=== PATIENT | female | born 1990 | race Caucasian/White ===

== ENCOUNTER 2019-10-18 16:07 | Emergency (ER) | payer BC, SELFPAY ==
[2019-10-18 16:43] LABS: #Eosinphils 0.1 thou/uL (0.0-0.7); #Lymphocytes 2.3 thou/uL (1.20-3.40); #Monocytes 0.6 thou/uL (0.11-0.59); #Neutrophils 9.8 thou/uL (1.40-6.50); %Eosinophils 0.7 % (0.0-10.0); %Lymphocytes 18.2 % (21.0-51.0); %Monocytes 4.4 % (0.0-10.0); %Neutrophils 76.7 % (42.0-75.0); Hemoglobin 12.2 g/dL (12.0-16.0); Mean Corpuscular HGB CONC 35.6 g/dL (32.0-36.0); Mean Corpuscular Hemoglobin 32.8 pg (27.0-31.0); Mean Corpuscular Volume 92.2 fL (78.0-98.0); Mean Platelet Volume 7.4 fL (7.4-10.4); Platelet Count 257 thou/uL (130-400); RBC Distribution Width 11.6 % (11.5-14.5); Red Blood Cell (RBC) Count 3.71 mill/uL (4.20-5.40); White Blood Cell (WBC) Count 12.8 thou/uL (4.8-10.8)
[2019-10-18 17:04] LABS: ALT (SGPT) 19 U/L (8-55); AST (SGOT) 17 U/L (5-34); Albumin 3.8 g/dL (3.5-5.0); Alkaline Phosphatase 73 U/L (40-110); Anion Gap 15 mmol/L (10-20); BUN (Urea Nitrogen) 13 mg/dL (7.0-18.7); Bilirubin, Total 0.5 mg/dL (0.2-1.2); Calc. Creatinine Clearance 0 mL/min (70-130); Calcium 9.1 mg/dL (7.8-10.44); Carbon Dioxide 19 mmol/L (22-29); Chloride 106 mmol/L (98-107); Estimated GFR-MDRD Greater than 90; Globulin 3.3 g/dL (2.4-3.5); Glucose 74 mg/dL (70-105); Potassium 3.7 mmol/L (3.5-5.1); Protein, Total 7.1 g/dL (6.0-8.3); Sodium 136 mmol/L (136-145)
[2019-10-18 17:29] LABS: Bacteria/HPF 2+ HPF (None Seen); Bilirubin Negative (Negative); Blood, Urine 2+ (Negative); Clarity Extra Turbid (Clear); Glucose, Urine (Dipstick) Normal (Negative); Leukocyte 500 Leu/uL (Negative); Nitrite Negative (Negative); Pregnancy Test - Urine (BHCG) POSITIVE (Negative); Pregu Control Background? CLEAR/WHITE (CLR/WHITE); Pregu Control Bar Appear? YES (CONTROL BAR); Protein, Urine (Dipstick) 100 mg/dL (Neg-Trace); RBC/HPF Greater than 50 HPF (0-3); Specific Gravity 1.035 (1.002-1.036); Urobilinogen Normal mg/dL (Less than 2); WBC/HPF Greater than 50 HPF (0-3)
--- NOTE | 2019-10-18 18:16 | ULT ---
Limited Obstetrical Ultrasound INDICATION: Lower abdominal pain with urinary frequency TECHNIQUE: Grayscale, M-mode Doppler, color Doppler and spectral Doppler images were obtained. Manpreet calero is focused on the clinical indication. COMPARISON: No relevant prior studies available. FINDINGS: GESTATION: Number of gestations: Single. Presentation: Breech. heart rate: 163 bpm. Placental location: Anterior and left lateral Previa: No evidence for previa. Cervical length: Not seen JUANA: Not measured cm. LIMITED SURVEY: Not performed BIOMETRY: Biparietal diameter: 3.10cm, 15 weeks and 5 days, 95th percentile. Head circumference: 11.47 cm, 15 weeks and 4 days, 92nd percentile Abdominal circumference: 9.43 cm, 15 weeks and 4 days, 91st percentile Femoral length: 1.63cm, 14 weeks and 6 days, 67th percentile Estimated weight: Not calculated The average gestational age by ultrasound is 15 weeks and 3 dayswith estimated due date of April 07, 2020. The estimated dates by clinical data is 14 weeks and 2 dayswith estimated due date of April 15, 2020 . IMPRESSION: 1. Single live intrauterine gestation with size and dates as above.
== END 2019-10-18 18:44 | disposition home or self-care (01) ==
LOC: ERS 16:07
DX: O23.12 Infections of bladder in pregnancy, second trimester (principal); O99.282 Endocrine, nutritional and metabolic diseases complicating pregnancy, second trimester; E03.9 Hypothyroidism, unspecified; Z3A.15 15 weeks gestation of pregnancy
CPT/HCPCS: 36415; 76815; 80053; 81003; 81015; 81025; 84702; 85025; 87086

== ENCOUNTER 2020-03-28 09:47 | Outpatient (CLI) | payer MEDICAID, OTHER ==
[2020-03-30 12:04] LABS: SARS-CoV-2 MS2 Positive; SARS-CoV-2 N Gene Negative; SARS-CoV-2 S Gene Negative; SARS-CoV-2 by NAA Not Detected (NotDetected); SARS-CoV-2 orf1ab Negative
== END 2020-03-28 09:48 | disposition home or self-care (01) ==
LOC: LABSCS 09:47
PROVIDERS: ATTEND Family Medicine
DX: Z01.812 Encounter for preprocedural laboratory examination (principal); Z11.59 Encounter for screening for other viral diseases
CPT/HCPCS: 87635; U0003

== ENCOUNTER 2020-03-31 11:08 | Inpatient (IN) | payer MEDICAID, OTHER ==
[2020-03-31] MEDS ORDERED: EPHEDRINE 25 MG/5 ML SYRINGE ONE (15:35)
[2020-03-31] MEDS ORDERED: Bupivacaine/Epinephrine 0.25% 30 ML VIAL ONE (15:35)
[2020-03-31 19:50] VITALS: BMI 46.5
[2020-03-31] MEDS ORDERED: hydrALAZINE 20 MG/ML VIAL SLOW IVP PRN ×2 (20:01)
[2020-03-31] MEDS ORDERED: Promethazine HCl 25 MG/ML VIAL IM PRN (20:01)
[2020-03-31] MEDS ORDERED: Lidocaine 1% (PF) 30 ML VIAL SC PRN (20:01)
--- NOTE | 2020-03-31 20:05 | PDOC.FPROB ---
FMR OB H&P: HPI - History of Present Illness Chief Complaint: eIOL Indentification: @ 39 weeks by 15.3 week sono, SIDRA 04/07/2020 History of Present Illness: Patient is a @ 39 weeks by 15.3 week sono, PMHx Marilin's Hypothyroidism , presents for eIOL. Patient has no concerns, + movement, denies contractions, loss of fluid or bleeding. Primary Care Physician: Brant Rodriguez - TAMP FMR OB H&P: Current - Care : 3 Para: 2 Gestational age: 39 weeks Due date: 04/07/2020 Dating Criteria: 15.3 week sono Course/Complications: Marilin's thyroiditis dx during pregnany, patient started on synthroid, TSH downtrending 5.51 > 3.6 > 3.1 > 2.45. Single Umbilical Artery on US, cleared by MFM for eIOL. 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: No abnormal paps, no hx of STI or herpes - Surgical History Sx History: Cholecystectomy 2006 - Social History Social History: no alcohol use, no tobacco, no illicit recreational drugs - Family History Family History: DM FMR OB H&P: Medications - Current Home Medications: Medication Instructions Recorded Confirmed Type Levothyroxine Sodium 125 mcg PO DAILY 03/31/20 03/31/20 History Allergies/Adverse Reactions: Allergies Allergy/AdvReac Type Severity Reaction Status Date / Time No Known Allergies Allergy Verified 03/31/20 19:43 FMR OB H&P: ROS - Review of Systems General: denies: fever/chills, weight/appetite/sleep changes Eyes: denies: eye pain, vision changes ENT: denies: nasal congestion, rhinorrhea Cardiovascular: denies: chest pain, palpitation Respiratory: denies: cough, congestion Gastrointestinal: denies: vomiting, diarrhea Genitourinary (Female): denies: incontinence, dysuria Musculoskeletal: denies: redness, swelling Neurologic: denies: numbness, syncope Integumentary: denies: itching, rash Breast: denies: lumps, bumps Endocrine: denies: polydipsia, polyphagia Hematologic/Lymphatic: denies: prolonged or excessive bleeding, enlarged lymph nodes Psychological: denies: depression, anxiety FMR OB H&P: Vital Signs - Maternal Vital signs: Vital Signs - First Documented Temp Pulse Resp BP 98.2 F 77 18 130/70 03/31/20 19:41 03/31/20 19:41 03/31/20 19:41 03/31/20 19:41 - Heart Tones Baseline: 140 Variability: moderate Acceleration: present Deceleration: absent Category: category 1 [place] contractions every: no contractions FMR OB H&P: Physical Exam - Physical Exam General: NAD, awake, alert and oriented HEENT: normocephalic and atraumatic, PERRLA Neck: supple, FROM General: CTAB, no respiratory distress Abdomen: soft, gravid Musculoskeletal: normal gait and station, FROM in all four extremities Neurological: sensation to pain,touch and proprioception grossly normal, no focal deficit Skin: no rash, good tugor Lymphatic: no unusual bruising or bleeding, no purpura Psychiatric: intact recent and remote memory, good judgement and insight, normal mood and affect - Pelvic Exam SVE: 1, thick, high Membranes: intact Presentation: vertex FMR OB H&P: A/P Discussion: Date/Time: 03/31/202003 Patient is a 29 y/o at 39 weeks, dated by 15.3 week US, who presents for an eIOL. 1. Term , eIOL SIDRA 04/07/20 AB+, antibody neg labs negative a1C 5% GTT 1 hr 120, 2hr 115 7/14 H/H 11.4/32.2 FHR 140s, mod variability, +accels, - decels - 1, thick and high @ 2010 - started 1 cytotech @2100 - will continue to monitor strip - recheck in 4 hours 2. Single Umbilical Artery - Identified on PNC and MFM US - MFM cleared for routine f/u and delivery at 39 weeks - will closely examine placenta s/p delivery, and send for pathology if single umbilical artery confirmed on exam 3. Marilin's Thyroiditis TSH 5.51 > 3.6 > 3.22 > 2.45(03/24) - patient will continue taking synthroid 4. Obesity BMI 46.5 - EFW 2424g/15% This H&P was discussed with Dr. Jay and Dr. Li who agree with the above documentation and plan. Addendum - Attending - Attending Attestation Date/Time: 03/31/20 8537 I personally evaluated the patient and discussed the management with Dr. Valle and Dr. Jay I agree with the History, Examination, Assessment and Plan documented above with any addition or exceptions noted below. 29 yo female at 39.0 wks by 15.3 wk sono here for IOL. SIDRA 04/07/20 Patient denies complications. Reports good movement. R/B/A of induction agents discussed. FHT reactive/cat 1. Decided to start miso. - sIUP: Records reviewed. AB neg. EFW 7.5 lbs. Cephalic by sono. - Autoimmune thyroiditis: Continue current dose of L4. Trend pp to adjust dosing. - BMI > 40: IOL. Miso q 4 hours. Continuous monitoring. Encourage BF. Lifestyle modifications. - SUA: No evidence of growth restriction. Grossly normal level II sono. Stephanie
[2020-03-31 20:39] LABS: Hemoglobin 11.3 g/dL (12.0-16.0); Mean Corpuscular HGB CONC 34.8 g/dL (32.0-36.0); Mean Corpuscular Hemoglobin 32.2 pg (27.0-31.0); Mean Corpuscular Volume 92.6 fL (78.0-98.0); Platelet Count 277 thou/uL (130-400); RBC Distribution Width 12.5 % (11.5-14.5); Red Blood Cell (RBC) Count 3.51 mill/uL (4.20-5.40); White Blood Cell (WBC) Count 12.1 thou/uL (4.8-10.8)
[2020-03-31] MEDS: Lactated Ringer's 1,000 ML IV SCH (20:40)
[2020-03-31] MEDS: Misoprostol 100 MCG TAB VAG SCH (20:41)
[2020-03-31 21:17] LABS: Syphilis Antibody Nonreactive (Nonreactive); Syphilis Antibody Index 0.03 S/CO (<1.00 Non-Reactive)
[2020-03-31 22:58] LABS: HBSAg Index 0.13 S/CO (0-0.99); Hep B Surf Ag Non-Reactive S/CO (NonReactive)
--- NOTE | 2020-04-01 06:23 | PDOC.LDPN ---
Labor & Delivery Progress Note - Subjective Subjective: vaginal pressure - Objective General: NAD Uterine fundus: non tender SVE: /-3 @ 0645 FHT: category 1 (baseline 120, accels present) [place] contractions every: 2-4 min Plan: continue plan of care -: Patient is a 29 y/o at 39 weeks, dated by 15.3 week US, who presents for an eIOL. 1. Term , eIOL SIDRA 04/07/20 AB+, antibody neg labs negative a1C 5% GTT 1 hr 120, 2hr 115 7/14 H/H 11.4/32.2 FHR 120s, mod variability, +accels, - decels - 1, thick and high @ 2009 - /-3 @0645 04/01 - started cytotec @2100 03/31, 0300 04/01 - will continue to monitor strip - recheck in 4 hours 2. Single Umbilical Artery - Identified on PNC and MFM US - MFM cleared for routine f/u and delivery at 39 weeks - will closely examine placenta s/p delivery, and send for pathology if single umbilical artery confirmed on exam 3. Marilin's Thyroiditis TSH 5.51 > 3.6 > 3.22 > 2.45(03/24) - patient will continue taking synthroid 4. Obesity BMI 46.5 - EFW 2424g/15% Dispo: Pt here for eIOL, currently 39.1wks by 15.3 wk sono, last check /-3, [place] score 4, will continue cytotec and check q4h
[2020-04-01] MEDS: Misoprostol 100 MCG TAB VAG SCH ×2 (07:17→08:16)
[2020-04-01] MEDS: Levothyroxine Sodium 125 MCG TAB PO SCH (07:50)
[2020-04-01] MEDS: Lactated Ringer's 1,000 ML IV SCH (08:16)
--- NOTE | 2020-04-01 10:32 | PDOC.LDPN ---
Labor & Delivery Progress Note - Subjective Subjective: painful contractions - Objective Vital signs reviewed and normal: yes General: breathing through contractions Uterine fundus: non tender SVE: /-3 FHT: category 1 (130/mod/+ accel/ no decel) -: SIDRA 04/07/20 1. eIOL - FHR 130s, mod variability, +accels, - decels - /-3 - has been given cytotec x3 - will continue to monitor strip - start pitocin, will recheck in 4 hours 2. Single Umbilical Artery - Identified on PNC and MFM US - MFM cleared for routine f/u and delivery at 39 weeks - will closely examine placenta s/p delivery, and send for pathology if single umbilical artery confirmed on exam 3. Marilin's Thyroiditis TSH 5.51 > 3.6 > 3.22 > 2.45(03/24) - patient will continue taking synthroid 4. Obesity BMI 46.5 - EFW 2424g/15%
[2020-04-01] MEDS ORDERED: NS w/ Oxytocin 10 units 500 ML IV SCH ×2 (10:45)
[2020-04-01] MEDS ORDERED: Fentanyl 4 mcg/Bup 0.1% Cadd 100 ML ONE (11:46)
[2020-04-01] MEDS ORDERED: Lactated Ringer's 500 ML IV PRN (12:04)
[2020-04-01] MEDS ORDERED: Ondansetron PF 4 MG/2 ML Vial IVP PRN (12:04)
[2020-04-01] MEDS ORDERED: Acetaminophen 325 MG TAB PO PRN (12:04)
[2020-04-01] MEDS ORDERED: EPHEDRINE 25 MG/5 ML SYRINGE SLOW IVP PRN (12:04)
[2020-04-01] MEDS ORDERED: diphenhydrAMINE 50 MG/ML VIAL IVP PRN (12:04)
[2020-04-01] MEDS ORDERED: Naloxone HCl 0.4 mg/ml Vial IVP PRN ×2 (12:04)
[2020-04-01] MEDS ORDERED: Promethazine HCl 25 MG/ML VIAL IM PRN (12:04)
[2020-04-01] MEDS ORDERED: Communication Order-Pharmacy FS SCH (12:15)
[2020-04-01] MEDS: Fentanyl 4 mcg/Bupivacaine 0.1% Cassette 100 ML EPIDURAL SCH ×2 (12:18→19:45)
[2020-04-01] MEDS: Ondansetron PF 4 MG/2 ML Vial IVP PRN ×2 (12:39→17:54)
--- NOTE | 2020-04-01 16:22 | PDOC.LDPN ---
Labor & Delivery Progress Note - Subjective Subjective: comfortable - Objective General: NAD Uterine fundus: non tender SVE: /-2 FHT: category 1 [place] contractions every: q2min AROM: clear fluid IUPC placed: yes FSE placed: yes -: 1. eIOL - FHR 130s, mod variability, +accels, - decels - /-2 - AROM 1616, clear fluid, FSE and IUPC placed - will continue pit and continue to monitor strip -epidural placed at 1200 2. Single Umbilical Artery - Identified on PNC and MFM US - MFM cleared for routine f/u and delivery at 39 weeks - will closely examine placenta s/p delivery, and send for pathology if single umbilical artery confirmed on exam 3. Marilin's Thyroiditis TSH 5.51 > 3.6 > 3.22 > 2.45(03/24) - patient will continue taking synthroid 4. Obesity BMI 46.5 - EFW 2424g/15%
[2020-04-01] MEDS ORDERED: Lactated Ringer's 500 ML IV SCH (19:45)
--- NOTE | 2020-04-01 19:45 | PDOC.OBLPN ---
FMR OB Labor PN: Subj - Interval History Hospital Day: 2 Chief Complaint: low BP, trouble tracing baby Indentification: 29 yo female at 39.1 wks by 15.3 wk sono Interval History: Low BP. +nausea. FMR OB Labor PN: Obj - Maternal Vital signs: BP 100s/50s. Baseline 130 to 120/60 to 70s. - Procedures Procedures: FSE placed without complications. FSE placed: yes Resuscitative measures: maternal IV fluids, other (Ephedrin) FMR OB Labor PN: Exam - Physical Exam General: NAD, awake, alert and oriented HEENT: normocephalic and atraumatic, PERRLA, EOMI, MMM Neck: supple, FROM Chest: non-tender to palpation Heart: no edema General: no respiratory distress Abdomen: soft, gravid, non-tender Skin: good tugor - Pelvic Exam SVE: 5/80/-2 Membranes: AROM at 1600 Presentation: Cephalic Estimated Weight: 7 lbs FMR OB Labor PN: Data - Labs Lab results: Laboratory Results - last 24 hr 03/31/20 03/31/20 03/31/20 20:31 20:31 20:31 WBC RBC Hgb Hct MCV MCH MCHC RDW Plt Count MPV Syphilis IgG/IgM Ab Nonreactive Hep Bs Antigen Non-Reactive Blood Type AB POSITIVE Antibody Screen NEGATIVE 03/31/20 03/31/20 20:31 22:16 WBC 12.1 H RBC 3.51 L Hgb 11.3 L Hct 32.5 L MCV 92.6 MCH 32.2 H MCHC 34.8 RDW 12.5 Plt Count 277 MPV 8.0 Syphilis IgG/IgM Ab Hep Bs Antigen Blood Type AB POSITIVE Antibody Screen FMR OB Labor PN: A/P - Problem List (1) Current Visit: Yes Status: Acute Qualifiers: Weeks of gestation: 39 weeks Qualified Code(s): Z3A.39 - 39 weeks gestation of Assessment and Plan: Record reviewed. GBS negative. AB neg. Will stop pit. Give IVF bolus and ephedrin to help with cat 2 tracing. Acels and variability present. FSE placed and therefore able to change maternal positioning now. Continue close monitoring. Now 5 cm. (2) Body mass index (BMI) 45.0-49.9, adult Current Visit: Yes Status: Acute Code(s): Z68.42 - BODY MASS INDEX (BMI) 45.0-49.9, ADULT Assessment and Plan: Lifestyle modifications. Encourage BF. (3) Autoimmune thyroiditis Current Visit: Yes Status: Acute Code(s): E06.3 - AUTOIMMUNE THYROIDITIS Assessment and Plan: Continue current L4 dose. Trend TSH in pp period in 2 to 4 wks. Adjust dosing as appropriate. (4) Single umbilical artery Current Visit: Yes Status: Acute Code(s): Q27.0 - CONGENITAL ABSENCE AND HYPOPLASIA OF UMBILICAL ARTERY Assessment and Plan: No evidence of growth restriction. Continue to monitor heart tracings closely. Placenta to path as indicated. Disposition: Continue resuscitation efforts. Monitor closely. Signature: Stephanie
[2020-04-02] MEDS: Fentanyl 4 mcg/Bupivacaine 0.1% Cassette 100 ML EPIDURAL SCH (04:00)
--- NOTE | 2020-04-02 04:23 | PDOC.BPN ---
<Jai Patel - Last Filed: 04/02/20 04:24> - Brief Progress Note Exam @ 0200 Patient with variable decels on monitor, some late decels, SVE /-2 1. eIOL - FHR 130s, mod variability, +accels, + variable, few late decels - /-2 - AROM 1616, clear fluid, FSE and IUPC in place - epidural placed at 1200 - hold pit, if strip looks good start pit slowly 2. Single Umbilical Artery - Identified on PNC and MFM US - MFM cleared for routine f/u and delivery at 39 weeks - will closely examine placenta s/p delivery, and send for pathology if single umbilical artery confirmed on exam 3. Marilin's Thyroiditis TSH 5.51 > 3.6 > 3.22 > 2.45(03/24) - patient will continue taking synthroid 4. Obesity BMI 46.5 - EFW 2424g/15% <Geraldine Li - Last Filed: 04/03/20 01:03> - Brief Progress Note Attending Note: Cat 1 with intermittent cat 2. Concern for body cord vs nuchal and possible true knot. Start amnio infussion. Continue to closely monitor. Start pit if able. Epidural in place for pain control. Continues to make cervical change. Stephanie
--- NOTE | 2020-04-02 07:14 | PDOC.LDPN ---
Labor & Delivery Progress Note - Subjective Subjective: comfortable (says she is starting to feel some pain with contractions) - Objective Vital signs reviewed and normal: yes General: resting Uterine fundus: non tender SVE: 0 FHT: category 2, variable decelerations [place] contractions every: 5-6min AROM: clear fluid IUPC placed: yes FSE placed: yes Resuscitative measures: amniofusion -: 1. eIOL - FHR 130s, mod variability, +accels, +variable decel @0625 - had some variable and late decels during the night, stopped pit and given amnioinfusion - 0 @0600 - AROM 1616, clear fluid, FSE and IUPC in place - epidural placed at 1200 - mojgan q5-6min 2. Single Umbilical Artery - Identified on PNC and MFM US - MFM cleared for routine f/u and delivery at 39 weeks - will closely examine placenta s/p delivery, and send for pathology if single umbilical artery confirmed on exam 3. Marilin's Thyroiditis TSH 5.51 > 3.6 > 3.22 > 2.45(03/24) - patient will continue taking synthroid 4. Obesity BMI 46.5 - EFW 2424g/15%
[2020-04-02] MEDS: Ondansetron PF 4 MG/2 ML Vial IVP PRN (07:20)
[2020-04-02] MEDS: Lactated Ringer's 1,000 ML IV SCH ×2 (07:23→11:35)
[2020-04-02] MEDS: Levothyroxine Sodium 125 MCG TAB PO SCH (07:59)
[2020-04-02] MEDS: NS / Oxytocin 40 units/1000ml 1,000 ML IV PRN ×2 (08:26→11:00)
--- NOTE | 2020-04-02 08:57 | PDOC.OPDEL ---
Addendum entered and electronically signed by Mellisa Cox MD 04/02/20 10:17 : During 2nd degree perineal laceration repair an arterial bleed was noted. It was pulsatile and repaired with 2 figure of eight sutures using 2-0 Vicryl. Noted to be hemostatic. Original Note: OB Operative/Delivery Note - Additional Findings/Plan Compilations/Other Findings: Delivering Physician Kenny Blanco Attending [place] Procedure: Spontaneous Vaginal Delivery Anesthesia: Epidural QBL: 850ml Pre-op Diagnosis: 1. eIOL of Term intrauterine 2. Single Umbilical Artery 3. Marilin's thyroiditis 4. Obesity Post-op Diagnosis: 1. Term intrauterine , delivered 2. same as above Indications: A 29y/o female presents for eIOL. Delivery Note: This is 29y/o female @ 39.2wks who delivered a viable M infant at 0822. Following an intrapartum course that included cytotec and pitocin admininstration, some variable and late decels and an amnioinfusion, a vigorous M was delivered over an intact perineum in the OA position. Anterior Shoulder and then remainder of the body delivered. No nuchal cord. The head was held down and mouth and nares were bulb suctioned. Cord clamped after delayed cord clamping and cut and cord blood collected. Knot in the cord was noted. Placenta delivered intact in the [place] presentation, and after inspection, single umbilical artery was found. Placenta sent to path. Fundal massage was performed and the fundus was firm. The cervix and vagina were inspected and found to have second degree perineal lac. Lac repaired with 3-0 and 2-0 vicryl in the usual fashion with good approximation and hemostasis. Infant went to nursery in good condition for routine care. Apgars were 8/9 at 1 & 5 minutes, respectively. Patient tolerated delivery well and went to after routine recovery/care. Addendum - Attending - Attending Attestation Date/Time: 04/02/20 1314 I was present, assisted and supervised the of this viable male over an intact perineum. Apgars 8/9. Placenta delivered spontaneously and intact. 3V cord. 2* vaginal laceration repaired with 3-0 vicryl . 2 figure of 8 sutures with 2-0 vicryl placed due to bleeding from vessel with good hemostasis. QBL 877 mL Infant and mother in stable condition. Residents: Francis/Kenny
[2020-04-02] MEDS ORDERED: Fentanyl 4 mcg/Bup 0.1% Cadd 0 ML ONE (09:37)
[2020-04-02] MEDS ORDERED: Benzocaine-Menthol 82.5 ML CAN TOP PRN (10:25)
[2020-04-02] MEDS ORDERED: Bisacodyl 10 MG SUPP PR PRN (10:25)
[2020-04-02] MEDS ORDERED: Ondansetron PF 4 MG/2 ML Vial IVP PRN (10:25)
[2020-04-02] MEDS ORDERED: Lanolin Ointment 7 GM TUBE TOP PRN (10:25)
[2020-04-02] MEDS ORDERED: Preparation H Ointment 28 GM TUBE PR PRN (10:25)
[2020-04-02] MEDS ORDERED: Milk Of Magnesia 30 ML UDCUP PO PRN (10:25)
[2020-04-02] MEDS ORDERED: NS / Oxytocin 40 units/1000ml 1,000 ML IV SCH (10:25)
[2020-04-02] MEDS ORDERED: Adacel (T-DAP) 0.5 ML SYRINGE IM ONE (10:25)
[2020-04-02] MEDS ORDERED: hydrALAZINE 20 MG/ML VIAL SLOW IVP PRN (10:25)
[2020-04-02] MEDS ORDERED: Polyethylene Glycol 3350 17 GM Packet PO SCH (10:45)
[2020-04-02] MEDS ORDERED: Prenatal Vitamin 1 TAB PO SCH (10:45)
[2020-04-02] MEDS ORDERED: Docusate Calcium (SURFAK) 240 MG CAP PO SCH (10:45)
[2020-04-02] MEDS: Misoprostol 100 MCG TAB VAG SCH ×2 (11:34→11:35)
[2020-04-02] MEDS: Ibuprofen 800 MG TAB PO SCH ×2 (14:47→22:41)
[2020-04-02] MEDS: Ferrous Sulfate 325 MG TAB PO SCH (18:20)
[2020-04-02] MEDS: Docusate Calcium (SURFAK) 240 MG CAP PO SCH (22:41)
[2020-04-03] MEDS: Ibuprofen 800 MG TAB PO SCH (05:20)
[2020-04-03 05:38] LABS: Hemoglobin 8.4 g/dL (12.0-16.0); Mean Corpuscular HGB CONC 32.5 g/dL (32.0-36.0); Mean Corpuscular Hemoglobin 30.8 pg (27.0-31.0); Mean Corpuscular Volume 94.9 fL (78.0-98.0); Mean Platelet Volume 7.9 fL (7.4-10.4); Platelet Count 235 thou/uL (130-400); RBC Distribution Width 12.7 % (11.5-14.5); Red Blood Cell (RBC) Count 2.71 mill/uL (4.20-5.40); White Blood Cell (WBC) Count 15.9 thou/uL (4.8-10.8)
--- NOTE | 2020-04-03 06:15 | PDOC.PP ---
Post Progress Note Post Day #: 1 Subjective: PPD 1, of vigorous male @ 39.2wks, second degree lac and QBL of 977 total today. Pt states minimal bleeding, less than period. Mild pain controlled with NSAIDs. Requesting to go home today after baby's circumcision. Tolerating diet, voiding well. PO intake tolerated: yes Flatus: yes Ambulation: yes Vital Signs (12 hours) Temp Pulse Resp BP Pulse Ox 04/03/20 04:35 97.9 F 60 18 105/54 L 98 04/03/20 00:15 98.7 F 73 16 123/60 95 04/02/20 19:22 98.7 F 63 16 108/60 99 Weight Weight 130.635 kg - Physical Examination General: NAD Cardiovascular: RRR Respiratory: clear to auscultation bilaterally, non-labored breathing Abdominal: lochia (minimal), appropriately TTP Psychiatric: normal affect Result Diagrams: 04/03/20 05:14 Additional Labs: Post Labs Blood Type AB POSITIVE 03/31/20 22:16 Hep Bs Antigen Non-Reactive S/CO (NonReactive) 03/31/20 20:31 - Assessment/Plan Term, 1. PPD #1 - routine pp care. - doing well with ibuprofen for pain. - Will plan for d/c home with ibuprofen. She will follow up at [facility] within 2 weeks and then [facility]. - She desires a nexplanon for contraception. We will arrange this at [facility]. 2. Anemia - Hb 8.6 > 8.3. - Not symptomatic. - Will d/c with PNV and iron supplement. 3. Marilin's Thyroiditis - patient will continue taking synthroid - f/u outpatient 4. Obesity BMI 46.5 Dispo: PPD 1, stable, pain controlled, will d/c home today after baby's 24hr bili and circumcision. Addendum - Attending - Attending Attestation Date/Time: 04/03/20 1450 I personally evaluated the patient and discussed the management with Dr. Blanco I agree with the History, Examination, Assessment and Plan documented above with any addition or exceptions noted below - Patient without complaints. Afebrile VSS. A/P: 1) PPD#1 s/p - doing well. Plan to d/c home today.
[2020-04-03 08:15] VITALS: BP 111/63; TEMP 98.1
[2020-04-03] MEDS: Docusate Calcium (SURFAK) 240 MG CAP PO SCH (08:47)
[2020-04-03] MEDS: Ferrous Sulfate 325 MG TAB PO SCH (08:47)
[2020-04-03] MEDS ORDERED: Prenatal Vitamin 1 TAB PO SCH (09:00)
[2020-04-03] MEDS ORDERED: Polyethylene Glycol 3350 17 GM Packet PO SCH (09:00)
[2020-04-04] MEDS ORDERED: Levothyroxine Sodium 125 MCG TAB PO SCH (06:00)
== END 2020-04-03 12:50 | disposition home or self-care (01) | DRG 807 ==
LOC: L&D 19:23 → 3SE 04-02 11:37
PROVIDERS: ADMIT Student in an Organized Health Care Education/Training Program; ATTEND Student in an Organized Health Care Education/Training Program
PROC: 10E0XZZ Delivery of Products of Conception, External Approach (ICD-10-PCS; principal; 2020-04-02)
PROC: 0KQM0ZZ Repair Perineum Muscle, Open Approach (ICD-10-PCS; 2020-04-02)
DX: O99.284 Endocrine, nutritional and metabolic diseases complicating childbirth (principal); Z37.0 Single live birth; E06.3 Autoimmune thyroiditis; O99.214 Obesity complicating childbirth; E66.9 Obesity, unspecified; O69.89X0 Labor and delivery complicated by other cord complications, not applicable or unspecified; O70.1 Second degree perineal laceration during delivery; Q27.0 Congenital absence and hypoplasia of umbilical artery; Z3A.39 39 weeks gestation of pregnancy; O90.81 Anemia of the puerperium; D64.9 Anemia, unspecified
CPT/HCPCS: 36415; 51702; 76815; 85027; 86780; 86850; 86900; 86901; 87340; 88307; J2405; J2550; J2590

== ENCOUNTER 2020-04-05 22:32 | Inpatient (IN) | payer OTHER ==
[~2020-04-05 22:32] MED LIST: Iopamidol-370 76% 500 ML 1 ML ONE
--- NOTE | 2020-04-05 23:14 | RAD ---
EXAM: Single view of the chest HISTORY: Chest pain COMPARISON: None FINDINGS: Single view of the chest shows a normal sized cardiomediastinal silhouette. There is no hilda dence of consolidation, mass, or pleural effusion. The bones are unremarkable IMPRESSION: No evidence of acute cardiopulmonary disease
[2020-04-05 23:19] LABS: #Eosinphils 0.3 thou/uL (0.0-0.7); #Monocytes 0.6 thou/uL (0.11-0.59); #Neutrophils 9.2 thou/uL (1.40-6.50); %Basophils 0.3 % (0.0-1.0); %Eosinophils 2.6 % (0.0-10.0); %Lymphocytes 22.5 % (21.0-51.0); %Monocytes 4.5 % (0.0-10.0); Hemoglobin 9.8 g/dL (12.0-16.0); Mean Corpuscular HGB CONC 34.4 g/dL (32.0-36.0); Mean Corpuscular Volume 96.1 fL (78.0-98.0); Mean Platelet Volume 7.6 fL (7.4-10.4); Platelet Count 269 thou/uL (130-400); RBC Distribution Width 12.3 % (11.5-14.5); Red Blood Cell (RBC) Count 2.96 mill/uL (4.20-5.40); White Blood Cell (WBC) Count 13.2 thou/uL (4.8-10.8)
[2020-04-05 23:38] LABS: ALT (SGPT) 17 U/L (8-55); AST (SGOT) 20 U/L (5-34); Albumin 3.5 g/dL (3.5-5.0); Alkaline Phosphatase 98 U/L (40-110); Anion Gap 14 mmol/L (10-20); BUN (Urea Nitrogen) 10 mg/dL (7.0-18.7); Bilirubin, Total 0.3 mg/dL (0.2-1.2); CK (CPK) 39 U/L (29-168); Calc. Creatinine Clearance 0 mL/min (70-130); Calcium 8.9 mg/dL (7.8-10.44); Carbon Dioxide 23 mmol/L (22-29); Chloride 106 mmol/L (98-107); Estimated GFR-MDRD 80; Globulin 3.4 g/dL (2.4-3.5); Glucose 76 mg/dL (70-105); Lipase 29 U/L (8-78); Potassium 3.8 mmol/L (3.5-5.1); Protein, Total 6.9 g/dL (6.0-8.3); Sodium 139 mmol/L (136-145)
[2020-04-06 00:08] LABS: Bacteria/HPF 2+ HPF (None Seen); Bilirubin Negative (Negative); Blood, Urine 3+ (Negative); Clarity Turbid (Clear); Glucose, Urine (Dipstick) Normal (Negative); Ketone, Urine Negative (Negative); Leukocyte 500 Leu/uL (Negative); Nitrite Negative (Negative); Protein, Urine (Dipstick) Negative (Neg-Trace); RBC/HPF Greater than 50 HPF (0-3); Specific Gravity, Urine 1.015 (1.002-1.036); WBC/HPF Greater than 50 HPF (0-3)
--- NOTE | 2020-04-06 00:27 | PDOC.FPRHP ---
Addendum entered and electronically signed by Zita Valle DO 04/06/20 07:14: A/P: CTA Chest ordered in ED to rule out PE after elevated DD. Original Note: - History of Present Illness Chief Complaint: Chest pain History of Present Illness: 29YO who is PP day #4, with a PMHx Marilin's Thyroiditis who presented to the ER for evaluation for chest tightness w/ associated B/L lower extremity edema, posterior headache & SOB that began yesterday. Per the patient , since yesterday she has been having episodes of lightheadedness with the above mentioned associated symptoms on and off. She called L&D yesterday who reportedly told her it could just be from hormonal changes in the PP period & asked her to check her BP which she reported was normal at that time. She stated that it finally got to the point where she almost passed out while grilling at home so she decided to come to the ED for further evaluation. Patient denies fever, chills cough, vision changes, urinary sxs. ED Course: 324mg ASA & 40mg IV lasix given in ED - Allergies/Adverse Reactions Allergies Allergy/AdvReac Type Severity Reaction Status Date / Time No Known Allergies Allergy Verified 03/31/20 19:43 - Home Medications Medication Instructions Recorded Confirmed Type Levothyroxine Sodium 125 mcg PO DAILY 03/31/20 03/31/20 History Ferrous Sulfate [Feosol] 325 mg PO QAM #20 tab 04/03/20 Rx Ibuprofen [Motrin] 800 mg PO Q8HR #20 tab 04/03/20 Rx Levothyroxine Sodium [Synthroid] 125 mcg PO 0600 tab 04/03/20 Rx Polyethylene Glycol 3350 [Miralax] 17 gm PO DAILY #1 bot 04/03/20 Rx Vitamin 1 tab PO DAILY tab 04/03/20 Rx - History PMHx: Marilin's thyroiditis PSHx: cholecystectomy FHx: not applicable Social: no alcohol, smoking or drugs - Review of Systems General: denies: fever/chills, weight/appetite/sleep changes Eyes: denies: eye pain ENT: denies: nasal congestion, rhinorrhea Respiratory: reports: shortness of breath. denies: cough Cardiovascular: reports: chest pain, palpitation, edema Gastrointestinal: denies: nausea, vomiting, diarrhea, abdominal pain Genitourinary: denies: dysuria, polyuria Skin: denies: rashes, lesions Musculoskeletal: reports: pain (bilateral ankles), swelling (b/l LE) Neurological: reports: other (+dizzy, lightheaded). denies: numbness, syncope Psychological: denies: anxiety, depression - Vital signs BP: 135/89, Pulse: 73, Resp: 22, Temp: 98.6F, O2 sat: 100 on RA, Wt: 113.4kg - Physical Exam Constitutional: NAD, awake, alert and oriented HEENT: normocephalic and atraumatic, PERRLA, EOMI Neck: supple, FROM Heart: RRR, no murmurs/rubs/gallops, pulses present, other (1+ pitting edema b/l ) Lungs: CTAB, no respiratory distress Abdomen: soft, non-tender Musculoskeletal: normal structure, normal tone Neurological: no focal deficit, normal sensation Skin: no rash/lesions, good turgor Heme/Lymphatic: no unusual bruising or bleeding, no purpura Psychiatric: normal mood and affect, good judgment and insight, intact recent and remote memory FMR H&P: Results - Labs Result Diagrams: 04/05/20 23:10 04/06/20 05:54 Lab results: WBC 13.2 thou/uL (4.8-10.8) H 04/05/20 23:10 Hgb 9.8 g/dL (12.0-16.0) L 04/05/20 23:10 Hct 28.5 % (36.0-47.0) L 04/05/20 23:10 MCV 96.1 fL (78.0-98.0) 04/05/20 23:10 Plt Count 269 thou/uL (130-400) 04/05/20 23:10 Neutrophils % 70.0 % (42.0-75.0) 04/05/20 23:10 Sodium 139 mmol/L (136-145) 04/05/20 23:10 Potassium 3.8 mmol/L (3.5-5.1) 04/05/20 23:10 Chloride 106 mmol/L (98-107) 04/05/20 23:10 Carbon Dioxide 23 mmol/L (22-29) 04/05/20 23:10 BUN 10 mg/dL (7.0-18.7) 04/05/20 23:10 Creatinine 0.83 mg/dL (0.6-1.1) 04/05/20 23:10 Glucose 76 mg/dL (70-105) 04/05/20 23:10 Calcium 8.9 mg/dL (7.8-10.44) 04/05/20 23:10 Total Bilirubin 0.3 mg/dL (0.2-1.2) 04/05/20 23:10 AST 20 U/L (5-34) 04/05/20 23:10 ALT 17 U/L (8-55) 04/05/20 23:10 Alkaline Phosphatase 98 U/L (40-110) 04/05/20 23:10 Creatine Kinase 39 U/L (29-168) 04/05/20 23:10 B-Natriuretic Peptide 229.9 pg/mL (0-100) H 04/05/20 23:10 Serum Total Protein 6.9 g/dL (6.0-8.3) 04/05/20 23:10 Albumin 3.5 g/dL (3.5-5.0) 04/05/20 23:10 Lipase 29 U/L (8-78) 04/05/20 23:10 Urine Ketones Negative mg/dL (Negative) 04/05/20 23:40 Urine Blood 3+ (Negative) A 04/05/20 23:40 Urine Nitrite Negative (Negative) 04/05/20 23:40 Ur Leukocyte Esterase 500 Ihsan/uL (Negative) A 04/05/20 23:40 Urine RBC Greater than 50 HPF (0-3) A 04/05/20 23:40 Urine WBC Greater than 50 HPF (0-3) A 04/05/20 23:40 Ur Squamous Epith Cells 7-10 HPF (0-3) A 04/05/20 23:40 Urine Bacteria 2+ HPF (None Seen) A 04/05/20 23:40 - EKG Interpretation EKG: NS @ 78bpm FMR H&P: A/P - Problem List (1) cardiomyopathy Current Visit: Yes Status: Suspected Code(s): O90.3 - PERIPARTUM CARDIOMYOPATHY (2) Marilin's thyroiditis Current Visit: Yes Status: Acute Code(s): E06.3 - AUTOIMMUNE THYROIDITIS - Plan Suspected PPCM vs Pre-Eclampsia PP Day 4, - Stat Echo - Strict I/Os - qdaily weights - prn hydralazine and labetalol for severe pressures - Urine Pr/Cr - resume PNVs and Iron Marilin's Thyroiditis - will resume home synthroid - TSH and Mg ordered Dispo: admit inpatient tele LOS >48 hours PCP: PNC PPx: lovenox Code Status: Full FMR H&P: Upper Level - Plan Date/Time: 04/06/20 0027 I, Enedelia Jay, have evaluated this patient and agree with findings/plan as outlined by it intern resident. Pertinent changes/additions are listed here. 29YO who is PP day #4 who presented to the ER for evaluation for chest tightness w/ associated B/L lower extremity edema, posterior headache & SOB that began yesterday. Per the patient, since yesterday she has been having episodes of lightheadedness with the above mentioned associated symptoms on and off. She called L&D yesterday who reportedly told her it could just be from hormonal changes in the PP period & asked her to check her BP which she reported was normal at that time. She stated that it finally got to the point where she almost passed out while grilling at home so she decided to come to the ED for further evaluation. On arrival her BP was slightly elevated at 150 systolic so she was given 324mg ASA & 40mg IV lasix. At the time of our exam all of her vitals were WNLs but her exam was notable for ~1+ pitting edema in her B/L LEs from her feet just up to above her ankles. Her workup was notable for an elevated BNP of ~229 & a d-dimer of 2.76. A CTA was ordered but not yet read by the time of our examination. Plan will be to admit her for continued monitoring on telemetry overnight and continue workup for suspected PPCM vs. PP pre-eclampsia. Will order a STAT ECHO but do not anticipate this will be done before the AM. Will get strict I&Os & QD weights & have PRN hydralazine & labetalol available for severe range pressure. Urine protein & creatinine levels pending to calculate urine protein to creatinine ratio to r/o pre-e. Will continue routine PP care as well with PRN tylenol for pain control & will resume PNVs & iron. Will also resume home synthroid dose but will check a TSH & Mg & phos as well. Anticipated LOS at least 2 midnights pending clinical course. Addendum - Attending - Attending Attestation Date/Time: 04/06/20 1038 I personally evaluated the patient and discussed the management with the team. I agree with the History, Examination, Assessment and Plan documented above with any addition or exceptions noted below. Patient feeling improved from admission. On exam comfortable. RRR s M, CTAB, 1+ BLE with neg homans/lauren and no palp cord. A/P: PPCM vs PreE with severe features (no pulm edema, no severe pressures) -diurese -await TTE -CTA neg -if swelling does not improve (she says it has) will get venous doppler
[2020-04-06] MEDS ORDERED: Aspirin 325 MG TAB ONE (00:58)
[2020-04-06 01:03] LABS: Creatinine, Urine 89.14 mg/dL (47-110)
[2020-04-06] MEDS ORDERED: Acetaminophen 325 MG TAB PO PRN (01:06)
[2020-04-06] MEDS ORDERED: Labetalol HCl 100 MG/20 ML VIAL SLOW IVP PRN (01:13)
[2020-04-06] MEDS ORDERED: hydrALAZINE 20 MG/ML VIAL SLOW IVP PRN (01:14)
[2020-04-06] MEDS ORDERED: cefTRIAXone\\ROCEPHIN 1 GM VIAL ONE (02:02)
[2020-04-06] MEDS ORDERED: Furosemide 40 MG/4 ML VIAL ONE (02:02)
[2020-04-06 03:03] LABS: Troponin I Less than 0.010 ng/mL (< 0.028)
[2020-04-06 06:30] LABS: ALT (SGPT) 18 U/L (8-55); AST (SGOT) 16 U/L (5-34); Albumin 3.1 g/dL (3.5-5.0); Alkaline Phosphatase 85 U/L (40-110); Anion Gap 11 mmol/L (10-20); BUN (Urea Nitrogen) 13 mg/dL (7.0-18.7); Bilirubin, Total 0.2 mg/dL (0.2-1.2); Calc. Creatinine Clearance 0 mL/min (70-130); Calcium 8.8 mg/dL (7.8-10.44); Carbon Dioxide 27 mmol/L (22-29); Chloride 105 mmol/L (98-107); Estimated GFR-MDRD 86; Globulin 2.9 g/dL (2.4-3.5); Glucose 78 mg/dL (70-105); Magnesium 1.9 mg/dL (1.6-2.6); Phosphorus 5.6 mg/dL (2.3-4.7); Potassium 3.7 mmol/L (3.5-5.1); Sodium 139 mmol/L (136-145)
--- NOTE | 2020-04-06 07:44 | CT ---
PRELIMINARY REPORT/[facility]/EMERGENCY AFTER HOURS PROCEDURE EXAM: CTA Chest with Intravenous Contrast CLINICAL HISTORY: VAGINAL DELIVERY 04/02 AND NOW WITH BILATERAL LOWER EXTREMITY SWELLING, CHEST PAIN TIGHTNESS, SOB, AND POSTERIOR HEADACHE. EXACERBATED BY LAYING DOWN FLAT. TECHNIQUE: Axial CTA images of the chest with intravenous contrast. Three-dimensional MIP/volume rendered reform ations were performed. CONTRAST: With; ISOVUE 370,100mL COMPARISON: None provided. FINDINGS: PULMONARY ARTERIES There is no intraluminal filling defect suspicious for PE. AORTA No thoracic aortic aneurysm or dissection. LUNGS The lungs are clear. No pulmonary mass. No focal airspace consolidation. PLEURAL SPACES No pleural effusion. No pneumothorax. HEART AND MEDIASTINUM Mild cardiomegaly. No significant pericardial effusion. LYMPH NODES No lymphadenopathy. BONES No focal osseous abnormality or acute fracture. CHEST WALL AND UPPER ABDOMEN Images through the upper abdomen are unremarkable. The chest wall is unremarkable. IMPRESSION: No evidence of a pulmonary embolism. Mild cardiomegaly. ELECTRONICALLY SIGNED BY: Ronni Vergara MD Apr 06, 2020 2:30:49 AM CDT This report is intended for review by the ordering physician only, in accordance of law. If you recei ve this report in error, please call [facility] at [phone]. FINAL REPORT CTA Angio Chest W WO Con History: Recent vaginal delivery with chest pain and shortness of breath Comparison: Chest radiograph prior day Findings/Impression: Concordant with the preliminary report. Transcribed Date/Time: 04/06/2020 7:48 AM
[2020-04-06] MEDS: Levothyroxine Sodium 125 MCG TAB PO SCH (09:09)
[2020-04-06] MEDS ORDERED: Enoxaparin Sodium 40 MG/0.4 ML SYRINGE ONE (10:07)
[2020-04-06] MEDS: Enoxaparin Sodium 40 MG/0.4 ML SYRINGE SC SCH (10:31)
[2020-04-06] MEDS: Ferrous Sulfate 325 MG TAB PO SCH (11:00)
[2020-04-06] MEDS: Prenatal Vitamin 1 TAB PO SCH (11:00)
[2020-04-06] MEDS: Polyethylene Glycol 3350 17 GM Packet PO SCH (11:00)
[2020-04-06 15:56] VITALS: BMI 45.7
[2020-04-06] MEDS: Acetaminophen 500 MG TAB PO PRN (22:00)
[2020-04-07] MEDS: Levothyroxine Sodium 125 MCG TAB PO SCH (05:09)
--- NOTE | 2020-04-07 06:10 | PDOC.FM ---
- Subjective Subjective: Pt resting comfortably, says she is feeling much better. Had a couple of episodes of chest tightness overnight but less severe than previously. C/o productive cough. Edema resolved. She is using breast pump. - Objective MAR Reviewed: Yes Vital Signs & Weight: Vital Signs (12 hours) Temp Pulse Resp BP Pulse Ox 04/07/20 05:02 98.0 F 60 18 151/70 H 99 04/07/20 01:06 99 04/06/20 19:42 98.4 F 59 L 20 135/74 98 Weight Weight 127.958 kg Result Diagrams: 04/05/20 23:10 04/06/20 05:54 EKG Reviewed by me: Yes (overnight had a period of sinus bradycardia) Radiology: Echo: EF 60-65%, normal diastolic function Phys Exam - Physical Examination Constitutional: NAD HEENT: moist MMs Neck: full ROM Respiratory: no wheezing, no rales, clear to auscultation bilateral Cardiovascular: RRR, no significant murmur Musculoskeletal: no edema, pulses present Neurological: non-focal Psychiatric: normal affect Dx/Plan - Plan Plan: Suspected PPCM vs Pre-Eclampsia with severe features PP Day 5 - BNP 176, trop neg, d-dimer 2.76, Urine Pr/Cr 0.145 - CTA: no PE - echo: EF 60-65%, normal diastolic function - Strict I/Os - qdaily weights - prn hydralazine and labetalol for severe pressures, has not had any severe pressures - resumed home meds LE Edema: - ordered venous doppler bilat - lasix 20mg IV Productive Cough - new onset - COVID swab pending Sinus Bradycardia - non-symptomatic - likely 2/2 normal physiologic response post Marilin's Thyroiditis - resumed home synthroid - TSH 3.8 Dispo: admit inpatient tele,stable, likely to be discharged today following venous doppler and COVID results PCP: MITESH PPx: phillip Code Status: Full Addendum - Attending - Attending Attestation Date/Time: 04/07/20 6943 I personally evaluated the patient and discussed the management with the team. I agree with the History, Examination, Assessment and Plan documented above with any addition or exceptions noted below. Improved symptomatically. RRR s M, CTAB s w/r/r. Trace edema, improved. Negative CTA, negative doppler. TTE normal. Plan for 1 more dose of lasix with dc subsequently. No evidence of ppcm, preE (only 1 elevated bp and normal workup ), and I find COVID unlikely in light of negative exam 10 days ago and normal CTA. F/u in clinic for BP/symptom check. Return precautions.
[2020-04-07] MEDS ORDERED: Furosemide 20 MG/2 ML VIAL SLOW IVP SCH (09:45)
[2020-04-07] MEDS: Ferrous Sulfate 325 MG TAB PO SCH (09:56)
[2020-04-07] MEDS: Polyethylene Glycol 3350 17 GM Packet PO SCH (09:56)
[2020-04-07] MEDS: Prenatal Vitamin 1 TAB PO SCH (09:56)
[2020-04-07] MEDS: Enoxaparin Sodium 40 MG/0.4 ML SYRINGE SC SCH (09:56)
--- NOTE | 2020-04-07 10:30 | ULT ---
EXAM: Bilateral lower extremity venous duplex: Deep veins evaluated with color Doppler, spectral analysis, and compression. INDICATIONS: Bilateral lower extremity pain and edema. FINDINGS: Deep veins interrogated include common femoral vein, femoral vein, popliteal vein, and post erior tibial vein. These veins show normal compression and blood flow. No evidence of DVT. IMPRESSION: Negative Bilateral venous duplex exam.
[2020-04-07 11:41] VITALS: BP 138/67; TEMP 98.3
[2020-04-07] MEDS: Acetaminophen 500 MG TAB PO PRN (12:39)
--- NOTE | 2020-04-08 08:24 | DIS ---
DATE OF ADMISSION: 04/06/2020 DATE OF DISCHARGE: 04/07/2020 RESIDENT: Haylee Blanco MD, PGY-1 ADMITTING ATTENDING: Candy Lara MD DISCHARGE ATTENDING: Rob Lockhart MD CONSULTS: No consults. PROCEDURES: none PRIMARY DIAGNOSIS: Suspected peripartum cardiomyopathy. SECONDARY DIAGNOSIS: Lower extremity edema, productive cough, sinus bradycardia , and Marilin's thyroiditis. DISCHARGE MEDICATIONS: None. DISCONTINUED MEDICATION: 1. Lovenox 40 mg 2. Furosemide 20mg HISTORY OF PRESENT ILLNESS: The patient is a 29-year-old G3, P3, day 4 after with a history of Marilin's thyroiditis, who presented to the ED for evaluation of chest pain and bilateral lower extremity edema. Also complained of headache, shortness of breath, and dizziness. One day prior began having the episodes on and off, they continued to progress until she became presyncopal and decided to go to the ED for further evaluation. In the ED, she was given aspirin and 40 mg of Lasix IV, admitted to telemetry for further monitoring. EKG was normal. Chest x-ray was normal. Relevant labs were D-dimer 2.76, BNP of 229. On physical exam, she was found to have 1+ pitting edema bilaterally of lower extremities. Rest of the physical exam was within normal limits. CTA was done and showed no PE. Echo was done and found ejection fraction of 60% to 65% with no diastolic dysfunction. Bilat venous doppler was negative for DVT. Overnight developed a productive cough, so COVID swab was done. The patient's vital signs were stable. Clinical improvement. No evidence of peripartum cardiomyopathy, was discharged home. We will call with the COVID results. DISPOSITION: Stable. DISCHARGE INSTRUCTIONS: 1. Location, home. 2. Diet: No restrictions. 3. Activity: No restrictions. 4. Follow up within 1 week with clinic. Job ID: [id number]
[2020-04-08 14:18] LABS: SARS-CoV-2 MS2 Positive; SARS-CoV-2 N Gene Negative; SARS-CoV-2 S Gene Negative; SARS-CoV-2 by NAA Not Detected (NotDetected); SARS-CoV-2 orf1ab Negative
== END 2020-04-07 15:10 | disposition home or self-care (01) | DRG 776 ==
LOC: ERS 22:32 → ERHOLD 04-06 00:40 → 2NO 04-06 15:38
PROVIDERS: ADMIT Family Medicine; ATTEND Family Medicine
DX: O90.3 Peripartum cardiomyopathy (principal); O99.285 Endocrine, nutritional and metabolic diseases complicating the puerperium; E06.3 Autoimmune thyroiditis; Z20.828 Contact with and (suspected) exposure to other viral communicable diseases; Z79.890 Hormone replacement therapy; Z90.49 Acquired absence of other specified parts of digestive tract
CPT/HCPCS: 36415; 71045; 71275; 80053; 81003; 81015; 82550; 82570; 83690; 83735; 83880; 84100; 84156; 84443; 84484; 85025; 85379; 87635; 93005; 93306; 93970; 96365; 96375; J0696; J1650; J1940; Q9967; U0003

== ENCOUNTER 2024-01-27 15:45 | Outpatient (CLI) | payer OTHER ==
[2024-01-27 17:24] LABS: #Basophils 0.03 10x3/uL (0.0-0.2); #Eosinphils 0.33 10x3/uL (0.0-0.5); #Monocytes 0.58 10x3/uL (0.0-1.1); #Neutrophils 9.72 10x3/uL (1.5-8.4); %Basophils 0.2 % (0.0-2.0); %Eosinophils 2.3 % (0.0-6.0); %Lymphocytes 24.5 % (18.0-47.0); %Monocytes 4.1 % (0.0-10.0); %Neutrophils 68.6 % (40.0-75.0); Hematocrit 34.4 % (34.9-44.5); Hemoglobin 11.7 g/dL (12.0-15.5); Mean Platelet Volume 9.4 fl (7.4-10.4); Platelet Count 329 10x3/uL (150-450); RBC Distribution Width 12.6 % (11.5-14.5); Red Blood Cell (RBC) Count 3.78 10x6/uL (3.90-5.03); White Blood Cell (WBC) Count 14.2 10x3/uL (3.5-10.5)
[2024-01-27 17:31] LABS: BHCG - Serum Negative (NEGATIVE); Pregs Control Background? CLEAR/WHITE (CLR/WHITE); Pregs Control Bar Appear? YES (CONTROL BAR)
[2024-01-27 17:42] LABS: ALT (SGPT) 30 U/L (8-55); AST (SGOT) 23 U/L (5-34); Albumin 3.8 g/dL (3.5-5.0); Alkaline Phosphatase 95 U/L (40-110); Anion Gap 13 mmol/L (10-20); BUN (Urea Nitrogen) 17 mg/dL (7.0-18.7); Bilirubin, Total 0.3 mg/dL (0.2-1.2); Calc. Creatinine Clearance 0 mL/min (70-130); Calcium 9.1 mg/dL (7.8-10.44); Carbon Dioxide 22 mmol/L (22-29); Chloride 105 mmol/L (98-107); Estimated GFR 98; Globulin 3.2 g/dL (2.4-3.5); Glucose 84 mg/dL (70-105); Potassium 3.9 mmol/L (3.5-5.1); Sodium 136 mmol/L (136-145)
[2024-01-27 19:52] LABS: Hemoglobin A1c 4.9 % (4.0-6.0)
== END 2024-01-27 15:46 | disposition home or self-care (01) ==
LOC: LABBT 15:45
PROVIDERS: ATTEND Surgery
DX: Z01.812 Encounter for preprocedural laboratory examination (principal); E66.01 Morbid (severe) obesity due to excess calories
CPT/HCPCS: 80053; 83036; 84703; 85025